=== PATIENT | male | born 1935 | race African-American/Black ===

== ENCOUNTER 2019-02-02 10:24 | Inpatient (IN) | payer MEDICARE, OTHER ==
[~2019-02-02] VITALS: Ht 172.7 cm; Wt 68.0 kg
--- NOTE | 2019-02-02 10:40 | NUR ---
ED Nurse Note: [facility] due to Grand mal seizure yesterday at home, lasted about 2 mins, witnessed by facility staffs. Family refused seizure medication, wanted to " check with neurologist first before medications", pt was taken to [facility] and this morning, pt had an episode of loss of consciousness. No hx of seizure. Dr Valencia requested to send patient to the ER. Pt AOx1, baseline. Vital signs stable at this time. Seizure precautions applied. Will cont to monitor.
--- NOTE | 2019-02-02 11:04 | Emergency Room Report ---
History of Present Illness General Chief Complaint: Seizure Source: EMS Present Illness HPI 83-year-old male history of Alzheimer's, dementia A+O x1 presents with new onset of seizures that occurred 2 days prior to arrival, severity is severe, lasting minutes tonic-clonic in nature, no aggravating or alleviating factors, patient was seen at [facility] where he was subsequently discharged, family refused to start seizure medications, patient was sent here by the senior living for evaluation. Allergies: Coded Allergies: No Known Allergies (Unverified , 02/02/19) Patient History Limited by: medical condition - Dementia Past Medical History: see triage record Reviewed Nursing Documentation: PMH: Agreed; PSxH: Agreed Nursing Documentation-PMH Past Medical History: No History, Except For Review of Systems All Other Systems: limited - Dementia Physical Exam Vital Signs Date Time Temp Pulse Resp B/P (MAP) Pulse Ox O2 Delivery O2 Flow Rate FiO2 02/02/19 10:33 97.9 70 18 127/75 (92) 93 Room Air Sp02 EP Interpretation: reviewed, normal General Appearance: well appearing, no apparent distress, alert Head: normocephalic, atraumatic Eyes: bilateral eye PERRL, bilateral eye EOMI ENT: uvula midline, moist mucus membranes Neck: supple, thyroid normal, supple/symm/no masses Respiratory: lungs clear, no respiratory distress, no retraction, no accessory muscle use Cardiovascular #1: normal peripheral pulses, regular rate, rhythm, no edema, no gallop, no murmur Gastrointestinal: non tender, soft, no guarding, no rebound Musculoskeletal: normal inspection Neurologic: alert, responsive Psychiatric: other - Flat affect Skin: no rash, warm/dry Medical Decision Making Diagnostic Impression: Primary Impression: Seizure disorder ER Course 83-year-old male presents with seizure disorder, patient is unable to give a history, he has dementia, spoke with Dr. Ortiz Neurology consult placed in the computer Laboratory Tests Test 02/02/19 11:00 02/02/19 11:25 White Blood Count 9.9 K/UL (4.8-10.8) Red Blood Count 5.23 M/UL (4.70-6.10) Hemoglobin 11.8 G/DL (14.2-18.0) L Hematocrit 39.9 % (42.0-52.0) L Mean Corpuscular Volume 76 FL (80-99) L Mean Corpuscular Hemoglobin 22.6 PG (27.0-31.0) L Mean Corpuscular Hemoglobin Concent 29.7 G/DL (32.0-36.0) L Red Cell Distribution Width 12.7 % (11.6-14.8) Platelet Count 165 K/UL (150-450) Mean Platelet Volume 9.9 FL (6.5-10.1) Neutrophils (%) (Auto) 80.7 % (45.0-75.0) H Lymphocytes (%) (Auto) 8.5 % (20.0-45.0) L Monocytes (%) (Auto) 9.2 % (1.0-10.0) Eosinophils (%) (Auto) 0.4 % (0.0-3.0) Basophils (%) (Auto) 1.1 % (0.0-2.0) Prothrombin Time 10.1 SEC (9.30-11.50) Prothrombin Time INR 0.9 (0.9-1.1) PTT 27 SEC (23-33) Sodium Level 140 MMOL/L (136-145) Potassium Level 4.2 MMOL/L (3.5-5.1) Chloride Level 106 MMOL/L (98-107) Carbon Dioxide Level 26 MMOL/L (21-32) Anion Gap 8 mmol/L (5-15) Blood Urea Nitrogen 14 mg/dL (7-18) Creatinine 1.0 MG/DL (0.55-1.30) Estimate Glomerular Filtration Rate mL/min (>60) Glucose Level 96 MG/DL (74-106) Lactic Acid Level 1.30 mmol/L (0.4-2.0) Calcium Level 9.0 MG/DL (8.5-10.1) Phosphorus Level 4.1 MG/DL (2.5-4.9) Magnesium Level 2.2 MG/DL (1.8-2.4) Total Bilirubin 0.6 MG/DL (0.2-1.0) Aspartate Amino Transferase (AST) 40 U/L (15-37) H Alanine Aminotransferase (ALT) 23 U/L (12-78) Alkaline Phosphatase 86 U/L (46-116) Total Creatine Kinase 1573 U/L (26-308) H Creatine Kinase MB 2.7 NG/ML (0.0-3.6) Creatine Kinase MB Relative Index 0.1 Troponin I 0.000 ng/mL (0.000-0.056) Pro-B-Type Natriuretic Peptide 171 pg/mL (0-125) H Total Protein 7.1 G/DL (6.4-8.2) Albumin 3.3 G/DL (3.4-5.0) L Globulin 3.8 g/dL Albumin/Globulin Ratio 0.9 (1.0-2.7) L Lipase 133 U/L (73-393) Urine Color Yellow Urine Appearance Clear Urine pH 6 (4.5-8.0) Urine Specific [place] 1.020 (1.005-1.035) Urine Protein 1+ (NEGATIVE) H Urine Glucose (UA) Negative (NEGATIVE) Urine Ketones Negative (NEGATIVE) Urine Blood Negative (NEGATIVE) Urine Nitrite Negative (NEGATIVE) Urine Bilirubin Negative (NEGATIVE) Urine Urobilinogen Normal MG/DL (0.0-1.0) Urine Leukocyte Esterase Negative (NEGATIVE) Urine RBC 0-2 /HPF (0 - 0) H Urine WBC 0-2 /HPF (0 - 0) Urine Squamous Epithelial Cells Occasional /LPF Urine Bacteria Few /HPF (NONE) Urine Mucus Moderate /LPF (NONE/OCC) H EKG Diagnostic Results EKG Time: 11:03 EP Interpretation: NSR, Rate: normal Rhythm: NSR ST Segments: no acute changes Chest X-Ray Diagnostic Results Chest X-Ray Diagnostic Results : Chest X-Ray Ordered: Yes # of Views/Limited/Complete: 1 View Indication: Other - seizure EP Interpretation: Yes Interpretation: no consolidation, no effusion, no pneumothorax, no acute cardiopulmonary disease Impression: No acute disease Electronically Signed by: Stevie Medina MD CT/MRI/US Diagnostic Results CT/MRI/US Diagnostic Results : Impression FINDINGS: No acute hemorrhage or edema. No mass effect or midline shift. There is age-related enlargement of the ventricles and extra axial CSF spaces. There is periventricular deep white matter ischemic change. Normal flynn-white differentiation. Visualized orbits are unremarkable. There is considerable frontal sinus opacification. Mucosal disease of several ethmoid air cells are also demonstrated.. Intact calvarium. IMPRESSION: Chronic and age-related changes. Negative for acute intracranial bleed or mass effect Last Vital Signs Date Time Temp Pulse Resp B/P (MAP) Pulse Ox O2 Delivery O2 Flow Rate FiO2 02/02/19 10:33 97.9 70 18 127/75 (92) 93 Room Air Disposition: ADMITTED INPATIENT Condition: Stable Stevie Medina MD Feb 02, 2019 11:04
[2019-02-02 11:18] LABS: BASOPHILS % (AUTO) 1.1 % (0.0-2.0); EOSINOPHILS % (AUTO) 0.4 % (0.0-3.0); HEMATOCRIT 39.9 % (42.0-52.0); HEMOGLOBIN 11.8 G/DL (14.2-18.0); LYMPHOCYTES % (AUTO) 8.5 % (20.0-45.0); MEAN CORPUSCULAR VOLUME 76 FL (80-99); MONOCYTES % (AUTO) 9.2 % (1.0-10.0); NEUTROPHILS % (AUTO) 80.7 % (45.0-75.0); PLATELET COUNT 165 K/UL (150-450); RED BLOOD COUNT 5.23 M/UL (4.70-6.10); RED CELL DISTRIBUTION WIDTH 12.7 % (11.6-14.8); WHITE BLOOD COUNT 9.9 K/UL (4.8-10.8)
[2019-02-02 11:31] VITALS: BP 136/81
[2019-02-02 11:31] LABS: INR 0.9 (0.9-1.1)
[2019-02-02 11:34] LABS: ANION GAP 8 mmol/L (5-15); BLOOD UREA NITROGEN 14 mg/dL (7-18); CARBON DIOXIDE 26 MMOL/L (21-32); CHLORIDE 106 MMOL/L (98-107); POTASSIUM 4.2 MMOL/L (3.5-5.1); SODIUM 140 MMOL/L (136-145)
[2019-02-02 11:45] LABS: APPEARANCE,URINE CLEAR; BILIRUBIN, URINE NEGATIVE (NEGATIVE); GLUCOSE, URINE (UA) NEGATIVE (NEGATIVE); KETONES,URINE NEGATIVE (NEGATIVE); LEUKOCYTE ESTERASE ,URINE NEGATIVE (NEGATIVE); NITRITE,URINE NEGATIVE (NEGATIVE); PH,URINE 6 (4.5-8.0); PROTEIN,URINE 1+ (NEGATIVE); UROBILINOGEN,URINE NORMAL MG/DL (0.0-1.0)
[2019-02-02 11:57] LABS: COLOR,URINE YELLOW
[2019-02-02 11:57] LABS: ALANINE AMINOTRANSFERASE 23 U/L (12-78); ALBUMIN 3.3 G/DL (3.4-5.0); ALBUMIN/GLOBULIN RATIO 0.9 (1.0-2.7); ALKALINE PHOSPHATASE 86 U/L (46-116); ASPARTATE AMINO TRANSFERASE 40 U/L (15-37); BILIRUBIN,TOTAL 0.6 MG/DL (0.2-1.0); CKMB 2.7 NG/ML (0.0-3.6); CREATINE KINASE 1573 U/L (26-308); PHOSPHORUS 4.1 MG/DL (2.5-4.9)
--- NOTE | 2019-02-02 12:00 | NUR ---
Ciro cornejo in EDM - 02/02/19 at 1230 by FARTUN ED Nurse Note: Dr. Shanks at bedside and discontinued sitter at this time.
--- NOTE | 2019-02-02 12:21 | NUR ---
ED Nurse Note: RN attempted to give report. Nurse, sung not available to take report per Ji.
--- NOTE | 2019-02-02 12:24 | Diagnostic Imaging Report ---
Indication: Altered mental status and seizures Technique: spiral acquisitions obtained through the brain. Angled axial and coronal 5 x 5 mm slices were reconstructed. No IV contrast utilized. Radiation dose was minimized using automated exposure control Total dose length product 1393 mGycm. CTDIvol(s) 70 mGy Comparison: none FINDINGS: No acute hemorrhage or edema. No mass effect or midline shift. There is age-related enlargement of the ventricles and extra axial CSF spaces. There is periventricular deep white matter ischemic change. Normal flynn-white differentiation. Visualized orbits are unremarkable. There is considerable frontal sinus opacification. Mucosal disease of several ethmoid air cells are also demonstrated.. Intact calvarium. IMPRESSION: Chronic and age-related changes. Negative for acute intracranial bleed or mass effect The CT scanner at [facility] is accredited by the [employer] and the scans are performed using protocols designed to limit radiation exposure to as low as reasonably achievable to attain images of sufficient resolution adequate for diagnostic evaluation
[2019-02-02] MEDS ORDERED: RIVASTIGMINE1 EAC1 TD (12:29)
[2019-02-02] MEDS ORDERED: MILK OF MA400 MG/51 ORAL (12:29)
[2019-02-02] MEDS ORDERED: FERROUS SULFAT325 MG ORAL (12:29)
[2019-02-02] MEDS ORDERED: MULTIVITAMINS1 EAC8 ORAL (12:29)
[2019-02-02] MEDS ORDERED: ASPIR 8181 MG ORAL (12:29)
[2019-02-02] MEDS ORDERED: SENNA8.6 M2 PO (12:29)
[2019-02-02] MEDS ORDERED: DULCOLAX10 MG RC (12:29)
[2019-02-02] MEDS ORDERED: METOPROLOL TART25 MG ORAL (12:29)
[2019-02-02] MEDS ORDERED: VITAMIN B-1100 MG ORAL (12:29)
[2019-02-02] MEDS ORDERED: DUONEB 0.5-3(2.53 ML HHN (12:29)
[2019-02-02] MEDS ORDERED: ACETAMINOPHEN325 M1 ORAL (12:29)
[2019-02-02 12:35] VITALS: BP 133/78
--- NOTE | 2019-02-02 12:50 | NUR ---
ED Nurse Note: MARISSA Burton gave report to MARISSA Beauchamp at ext [phone].
--- NOTE | 2019-02-02 12:50 | NUR ---
NURSE NOTES: received report from CHEYENNE hoskins RN. patient will be admitted under Dr. renaldo hitchcock of syncope. seizure
--- NOTE | 2019-02-02 13:00 | Diagnostic Imaging Report ---
Indication: Dyspnea Technique: One view of the chest Comparison: none Findings: Lungs and pleural spaces are clear. Heart size is upper limits normal. Is the aorta is tortuous Impression: No acute process
--- NOTE | 2019-02-02 13:09 | NUR ---
NURSE NOTES: patient admitted to [address]/ under Dr. Valencia dx of seizure and syncope. no episode of seizure since ER admitt. alert. limited verbal communication. no respiratory distress noted. no facial grimacing. IV on LFA 20g. hep lock. a daughter at the bed side. skin assess done. no decubitus noted. seizure precaution. side rails padded. bed in the lowest position. call light within reach. alarm on. will continue to provide plan of care.
[2019-02-02 13:25] VITALS: BP 127/84
--- NOTE | 2019-02-02 15:00 | NUR ---
NURSE NOTES: called Dr. Valencia and received new admission orders. order noted and carried out.
[2019-02-02] MEDS ORDERED: Albuterol/Ipratropium 3ml neb HHN PRN (15:45)
[2019-02-02] MEDS ORDERED: Milk of Magnesia 30ml Ud ORAL PRN (15:45)
--- NOTE | 2019-02-02 15:55 | NUR ---
NURSE NOTES: left message to Dr. Hunt ([phone]) for neuro consult ordered by DR. Valencia.
[2019-02-02 16:00] VITALS: BP 135/63
[2019-02-02] MEDS: D5 1/2NS 1,000 ML IV SCH (16:22)
--- NOTE | 2019-02-02 19:48 | NUR ---
HAND-OFF: Report given to MARISSA Morel.
[2019-02-02 20:08] VITALS: BP 119/79
--- NOTE | 2019-02-02 20:20 | NUR ---
NURSE NOTES: PATIENT IN BED, AWAKE. IV IN PLACE, RUNNING IV FLUIDS. NO S/S DISTRESS OR PAIN NOTED. WHEN NURSE ATTEMPTED TO DO NEURO CHECK, PATIENT STATED "NO" WHEN NURSE ASKED HIS ABOUT HIS NAME, DATE, PLACE, PURPOSE. BED IN LOWEST POSITION, CALL LIGHT WITHIN REACH, BED ALARM ON. WILL CONTINUE TO MONITOR.
[2019-02-02] MEDS: Metoprolol 25mg tab ORAL SCH (20:36)
[2019-02-02] MEDS: Heparin 5000 units/ml inj SUBQ SCH (20:45)
[2019-02-03 00:12] VITALS: BP 129/79
--- NOTE | 2019-02-03 03:12 | History & Physical ---
History of Present Illness General Date patient seen: Feb 02, 2019 Time patient seen: 22:59 Reason for Hospitalization: Seizure new onset Present Illness HPI 83 yo male with hx of psychosis has new onset of tonic/clonicseizure which occurred 2 days ago and was transferred to [facility] for evaluation. He was discharged from ER back to [facility] on antiepileptic medication however his family refused the medication because he was not seen by neurologic. Today he had another seizure. It was decided to take patient to hospital. Awaiting evaluation by neurology. Otherwise patient is stable. No report of trauma to the head. Allergies: Coded Allergies: No Known Allergies (Unverified , 02/02/19) Medication History Scheduled Aspirin* (Aspir 81*), 81 MG ORAL DAILY, (Reported) Ferrous Sulfate* (Ferrous Sulfate*), 325 MG ORAL DAILY, (Reported) Metoprolol Tartrate* (Metoprolol Tartrate*), 25 MG ORAL EVERY 12 HOURS, ( Reported) Multivitamin With Minerals (Multivitamins With Minerals*), 1 TAB ORAL DAILY, ( Reported) Rivastigmine (Rivastigmine), 1 EACH TD DAILY, (Reported) Sennosides (Senna), 17.2 MG PO DAILY, (Reported) Thiamine Hcl* (Vitamin B-1*), 100 MG ORAL DAILY, (Reported) Scheduled PRN Acetaminophen* (Acetaminophen 325MG Tablet*), 650 MG ORAL Q6H PRN for For Pain, (Reported) Bisacodyl (Dulcolax), 10 MG RC NEEDED PRN for Constipation, (Reported) Ipratropium/Albuterol Sulfate (DuoNeb 0.5-3(2.5)mg/3ml), 3 ML HHN EVERY 6 HOURS PRN for Shortness of Breath, (Reported) Magnesium Hydroxide* (Milk Of Magnesia*), 30 ML ORAL DAILY PRN for Constipation, (Reported) Patient History Limited by: medical condition History Provided By: Medical Record Healthcare decision maker lilibeth [place]/daughter Resuscitation status Full Code Advanced Directive on File Review of Systems Review of Symptoms General ROS: no weight loss or fever Psychological ROS: no depression or mood changes, no memory loss Ophthalmic ROS: no visual changes or eye irritation ENT ROS: no nasal congestion, hearing loss, dizziness Allergy and Immunology ROS: no allergic symptoms or urticaria Hematological and Lymphatic ROS: no swollen glands, unusual bleeding or bruising Endocrine ROS: no polyuria, polydipsia, weight changes, temperature intolerance Respiratory ROS: no cough, shortness of breath, or wheezing Cardiovascular ROS: no chest pain or dyspnea on exertion Gastrointestinal ROS: denies abdominal pain, bright red blood in stool. Musculoskeletal ROS: no myalgias or arthralgias Neurological ROS: no TIA or stroke symptoms Dermatological ROS: no new or changing skin lesions, rashes or pruritis Physical Exam Physical Exam General appearance: alert, cooperative, no distress, appears stated age Head: Normocephalic, without obvious abnormality, atraumatic Eyes: conjunctivae/corneas clear. PERRL, EOM's intact. Fundi benign Throat: Lips, mucosa, and tongue normal. Teeth and gums normal Neck: supple, symmetrical, trachea midline, no adenopathy, thyroid: not enlarged, symmetric, no tenderness/mass/nodules, no carotid bruit and no JVD Lungs: clear to auscultation bilaterally Heart: regular rate and rhythm, S1, S2 normal, no murmur, click, rub or gallop Abdomen: soft, non-tender. Bowel sounds normal. No masses, no organomegaly Extremities: extremities normal, atraumatic, no cyanosis or edema Pulses: 2+ and symmetric Skin: Skin color, texture, turgor normal. No rashes or lesions Neurologic: Grossly normal Last 24 Hour Vital Signs Date Time Temp Pulse Resp B/P (MAP) Pulse Ox O2 Delivery O2 Flow Rate FiO2 02/03/19 00:12 97.6 82 18 129/79 (96) 96 02/02/19 21:00 Room Air 02/02/19 20:36 101 119/79 02/02/19 20:08 97.8 101 18 119/79 (92) 96 02/02/19 16:00 98.7 68 18 135/63 (87) 94 02/02/19 13:25 98.2 69 19 127/84 (98) 94 02/02/19 13:23 Room Air 02/02/19 12:50 97.9 87 19 133/78 99 Room Air 02/02/19 12:35 97.9 87 19 133/78 99 Room Air 02/02/19 11:31 97.9 89 20 136/81 97 Room Air 02/02/19 11:31 89 20 Room Air 02/02/19 10:33 97.9 70 18 127/75 (92) 93 Room Air Intake and Output 02/02/19 02/03/19 18:59 06:59 Intake Total 360 ml Output Total 10 ml Balance 350 ml Intake Oral 360 ml Output Urine Total 10 ml # Voids 3 Laboratory Tests Test 02/02/19 11:00 02/02/19 11:25 White Blood Count 9.9 K/UL (4.8-10.8) Red Blood Count 5.23 M/UL (4.70-6.10) Hemoglobin 11.8 G/DL (14.2-18.0) L Hematocrit 39.9 % (42.0-52.0) L Mean Corpuscular Volume 76 FL (80-99) L Mean Corpuscular Hemoglobin 22.6 PG (27.0-31.0) L Mean Corpuscular Hemoglobin Concent 29.7 G/DL (32.0-36.0) L Red Cell Distribution Width 12.7 % (11.6-14.8) Platelet Count 165 K/UL (150-450) Mean Platelet Volume 9.9 FL (6.5-10.1) Neutrophils (%) (Auto) 80.7 % (45.0-75.0) H Lymphocytes (%) (Auto) 8.5 % (20.0-45.0) L Monocytes (%) (Auto) 9.2 % (1.0-10.0) Eosinophils (%) (Auto) 0.4 % (0.0-3.0) Basophils (%) (Auto) 1.1 % (0.0-2.0) Prothrombin Time 10.1 SEC (9.30-11.50) Prothromb Time International Ratio 0.9 (0.9-1.1) Activated Partial Thromboplast Time 27 SEC (23-33) Sodium Level 140 MMOL/L (136-145) Potassium Level 4.2 MMOL/L (3.5-5.1) Chloride Level 106 MMOL/L (98-107) Carbon Dioxide Level 26 MMOL/L (21-32) Anion Gap 8 mmol/L (5-15) Blood Urea Nitrogen 14 mg/dL (7-18) Creatinine 1.0 MG/DL (0.55-1.30) Estimat Glomerular Filtration Rate mL/min (>60) Glucose Level 96 MG/DL (74-106) Lactic Acid Level 1.30 mmol/L (0.4-2.0) Calcium Level 9.0 MG/DL (8.5-10.1) Phosphorus Level 4.1 MG/DL (2.5-4.9) Magnesium Level 2.2 MG/DL (1.8-2.4) Total Bilirubin 0.6 MG/DL (0.2-1.0) Aspartate Amino Transf (AST/SGOT) 40 U/L (15-37) H Alanine Aminotransferase (ALT/SGPT) 23 U/L (12-78) Alkaline Phosphatase 86 U/L (46-116) Total Creatine Kinase 1573 U/L (26-308) H Creatine Kinase MB 2.7 NG/ML (0.0-3.6) Creatine Kinase MB Relative Index 0.1 Troponin I 0.000 ng/mL (0.000-0.056) Pro-B-Type Natriuretic Peptide 171 pg/mL (0-125) H Total Protein 7.1 G/DL (6.4-8.2) Albumin 3.3 G/DL (3.4-5.0) L Globulin 3.8 g/dL Albumin/Globulin Ratio 0.9 (1.0-2.7) L Lipase 133 U/L (73-393) Urine Color Yellow Urine Appearance Clear Urine pH 6 (4.5-8.0) Urine Specific [place] 1.020 (1.005-1.035) Urine Protein 1+ (NEGATIVE) H Urine Glucose (UA) Negative (NEGATIVE) Urine Ketones Negative (NEGATIVE) Urine Blood Negative (NEGATIVE) Urine Nitrite Negative (NEGATIVE) Urine Bilirubin Negative (NEGATIVE) Urine Urobilinogen Normal MG/DL (0.0-1.0) Urine Leukocyte Esterase Negative (NEGATIVE) Urine RBC 0-2 /HPF (0 - 0) H Urine WBC 0-2 /HPF (0 - 0) Urine Squamous Epithelial Cells Occasional /LPF Urine Bacteria Few /HPF (NONE) Urine Mucus Moderate /LPF (NONE/OCC) H Microbiology Date/Time Source Procedure Growth Status 02/02/19 12:40 Rectum Received Height (Feet): 5 Height (Inches): 8.00 Weight (Pounds): 150 Medications Current Medications Medications (Trade) Dose Ordered Sig/Rajinder Route PRN Reason Start Time Stop Time Status Last Admin Dose Admin Acetaminophen (Tylenol) 650 mg Q6H PRN ORAL Mild Pain/Temp > 100.5 02/02/19 15:45 03/04/19 15:44 Albuterol/ Ipratropium (Albuterol/ Ipratropium) 3 ml Q6H PRN HHN Shortness of Breath 02/02/19 15:45 02/07/19 15:44 Aspirin (ASA) 81 mg DAILY ORAL 02/03/19 09:00 03/05/19 08:59 Bisacodyl (Dulcolax) 10 mg DAILYPRN PRN RECTAL Constipation 02/02/19 15:45 03/04/19 15:44 Dextrose/Sodium Chloride 1,000 ml @ 40 mls/hr Q24H IV 02/02/19 16:00 03/04/19 15:59 02/02/19 16:22 Ferrous Sulfate (Feosol) 325 mg DAILY ORAL 02/03/19 09:00 03/05/19 08:59 Heparin Sodium (Porcine) (Heparin 5000 units/ml) 5,000 units EVERY 12 HOURS SUBQ 02/02/19 21:00 03/04/19 20:59 02/02/19 20:45 Magnesium Hydroxide (Mom) 30 ml DAILYPRN PRN ORAL Constipation 02/02/19 15:45 03/04/19 15:44 Metoprolol Tartrate (Lopressor) 25 mg Q12HR ORAL 02/02/19 21:00 03/04/19 20:59 02/02/19 20:36 Multivitamins Therapeutic (Therapeutic Multivitamin) 1 ea DAILY ORAL 02/03/19 09:00 03/05/19 08:59 Rivastigmine Tartrate (Exelon) 9.5 mg DAILY TDERMAL 02/03/19 09:00 03/05/19 08:59 Sennosides (Senokot) 17.2 mg DAILY ORAL 02/03/19 09:00 03/05/19 08:59 Thiamine HCl (Vitamin B1) 100 mg DAILY ORAL 02/03/19 09:00 03/05/19 08:59 Assessment/Plan Status: stable Status Narrative New onset of seizure, etiology unknown. Awaiting recommendation by neurology Diagnosis [place] I: Generalized tonic/clonic seizure Psychosis MIPS Hospital declaration INPATIENT level of care is warranted for this patient because patient is a 89 year old with who presents with suspicion of . I have a high level of concern because . Patient is at high risk for . Plan of care/treatment include . Patient care is expected to be greater than 2 midnights. OBSERVATION level of care is warranted for this patient. Patient is a 89 year old with who presents with . Patient will be admitted for 1 midnight, but if additional night(s) is/are necessary, patient will be converted to inpatient status for the entire hospitalization Disposition: Once the patient is stable to leave the hospital, I anticipate the patient will likely be discharged to the following environment: Estimated discharge date: I spent 70 minutes on this patient's case, and minutes was dedicated to counseling and/or care coordination. MIPS (Merit-based Incentive Payment System) Applicable CPT: 48771, 32100 CHECK ALL THAT ARE MET: Measure #5 (CHF): All ages. Prescribe PATRICE/ARB upon discharge for patients with left ventricular systolic dysfunction. If not, the reason is clearly documented in the medical chart. Measure #8 (CHF): All ages. Prescribe a beta ronaldo upon discharge for patients with left ventricular systolic dysfunction. If not, the reason is clearly documented in the medical chart. Measure #47 Advance care plan or surrogate decision maker documented in the medical record. Measure #130 The provider has documented, updated, or reviewed the patients current medication list and has documented it in the patients note. Measure #374 (All): Send report to referring provider. Measure #407(Sepsis due to MSSA bacteremia): Age 18+ Patient treated with a beta-lactam antibiotic (Nafcillin, Oxacillin or Cefazolin) as definitive therapy. MEDICAL COMPLEXITY High complexity medical decision making (need 2/3 categories) Problem - need 4 points Acute/new problem with new plan for workup (4 points, 1 max) Acute/new problem without additional workup (3 points, 1 max) Unstable chronic problem actively being managed (2 point each, 2 max) Stable chronic problem actively being managed (1 point each, 2 max) Self-limited/transient process (constipation, muscle ache, etc) (1 point each , 2 max) Data - need 4 points Reviewed labs/imaging studies (1 points, 2 max) Independent review of imaging (EKG, xrays, etc) (2 points, 2 max) Discussed case with consult/other MD/RN (2 points, 2 max) High Risk - qualify if have one of the following: Severe exacerbation of acute problem, acute mental status change, IV narcotics , monitoring drug levels (vancomycin, INR, tacrolimus etc) Luis Valencia MD Feb 03, 2019 03:12
[2019-02-03 04:53] VITALS: BP 136/69
--- NOTE | 2019-02-03 06:20 | NUR ---
NURSE NOTES: Patient asleep, no distress.
[2019-02-03 06:32] LABS: BASOPHILS % (AUTO) 2.1 % (0.0-2.0); EOSINOPHILS % (AUTO) 0.9 % (0.0-3.0); HEMATOCRIT 39.7 % (42.0-52.0); HEMOGLOBIN 11.9 G/DL (14.2-18.0); LYMPHOCYTES % (AUTO) 17.5 % (20.0-45.0); MEAN CORPUSCULAR VOLUME 76 FL (80-99); MONOCYTES % (AUTO) 10.6 % (1.0-10.0); PLATELET COUNT 172 K/UL (150-450); RED BLOOD COUNT 5.19 M/UL (4.70-6.10); RED CELL DISTRIBUTION WIDTH 12.8 % (11.6-14.8); WHITE BLOOD COUNT 8.1 K/UL (4.8-10.8)
[2019-02-03 07:00] LABS: ANION GAP 5 mmol/L (5-15); BLOOD UREA NITROGEN 16 mg/dL (7-18); CALCIUM 9.3 MG/DL (8.5-10.1); CARBON DIOXIDE 29 MMOL/L (21-32); CHLORIDE 103 MMOL/L (98-107); CREATININE 1.1 MG/DL (0.55-1.30); POTASSIUM 3.8 MMOL/L (3.5-5.1); SODIUM 137 MMOL/L (136-145)
--- NOTE | 2019-02-03 07:18 | NUR ---
NURSE NOTES: received report from MARISSA Morel. patient in bed. sleeping. no respiratory distress noted on room air. no facial grimacing noted. IV on LFA 20g intact. running d51/2@40/hr. no episode of seizure or syncope during night. bed in the lowest position. call light within reach. alarm on. will continue to provide plan of care.
--- NOTE | 2019-02-03 07:19 | NUR ---
HAND-OFF: Report given to KOMAL PROCTOR RN.
[2019-02-03 08:00] VITALS: BP 129/82
[2019-02-03] MEDS: Metoprolol 25mg tab ORAL SCH ×2 (08:21→20:36)
[2019-02-03] MEDS: Thiamine 100mg tab ORAL SCH (08:21)
[2019-02-03] MEDS: Multivitamin w/Minerals tab ORAL SCH (08:21)
[2019-02-03] MEDS: Sennosides 8.6mg tab ORAL SCH (08:21)
[2019-02-03] MEDS: Aspirin Baby 81mg ORAL SCH (08:22)
[2019-02-03] MEDS: Heparin 5000 units/ml inj SUBQ SCH ×2 (08:23→20:39)
[2019-02-03] MEDS: EXELON TDERMAL SCH (10:22)
--- NOTE | 2019-02-03 10:50 | NUR ---
NURSE NOTES: left message to Dr. Hunt for neuro consult. waiting for call back.
[2019-02-03 12:00] VITALS: BP 130/86
--- NOTE | 2019-02-03 12:59 | NUR ---
NURSE NOTES: received call from Erik Villalta regarding neuro consult with Dr. Hunt. notified dr. webber RNs have not received call back from Dr. Hunt yet. Dr. webber wants to call him when neuro doctor would see the patient or if not still want to hear update. will carry out.
--- NOTE | 2019-02-03 15:49 | NUR ---
NURSE NOTES: have not received return call from Dr. Hunt and his PA Cesar does not work for [facility] anymore. notified Dr. Valencia and waiting call back.
--- NOTE | 2019-02-03 15:50 | NUR ---
INVOICING SPECIALISTVICE PRESIDENT OF COMMUNICATIONS 83 YO MALE BIBA FROM [facility] TO ER CC PT HAD A GRAND MALL SEIZURE YESTERDAY AND SENT TO [facility]: SEIZURE SYNCOPE T. 97.9 HR 70 RR 18 B/P 127/75 AST 40 TCK [address] NO ACUTE PROCESS CXR= NO ACUTE PROCESS IS: ADMITTED TO MED/SURG@ 1250 MED/SURG STATUS IS: IVF D5NS @ 40ML/HR ASA MVI HEPARIN SUBC MED/SURG STATUS DCP RETURN TO [facility]
[2019-02-03] MEDS: D5 1/2NS 1,000 ML IV SCH (15:57)
[2019-02-03 16:00] VITALS: BP 127/74
--- NOTE | 2019-02-03 16:19 | NUR ---
NURSE NOTES: received call from lawanda Villalta. wanted to talk to charge nurse/lCara for further order.
--- NOTE | 2019-02-03 18:33 | NUR ---
NURSE NOTES: Dr. webber awares no neuro consult available at this time. Charge nurse tried contact to DR. Fabian and Dr. Hunt but could not reach both.
--- NOTE | 2019-02-03 19:30 | NUR ---
NURSE NOTES: RECEIVED PATIENT LYING IN BED, AWAKE, ORIENTED TO PERSON, ABLE TO STATE NAME, REALITY ORIENTATION PROVIDED DURING ASSESSMENT. ALL NEEDS ANTICIPATED AND MET BY NURSING STAFF DUE TO COGNITIVE STATUS. NO SIGNS AND SYMPTOMS OF ACUTE CARDIO RESPIRATORY DISTRESS/SHORTNESS OF BREATH, NO PERIPHERAL EDEMA NOTED. FALL/SEIZURE PRECAUTIONS IMPLEMENTED, SIDE RAILS PADDED, NO REPORT OF SEIZURE ACTIVITY. ABDOMEN SOFT/NON DISTENDED/NON TENDER/AUDIBLE BOWEL SOUNDS. SIDE RAILS UP X3/BED IN LOWEST POSITION FOR SAFETY. CALL LIGHT WITHIN REACH. FREQUENT ROUNDING FOR SAFETY/NEEDS. NAD.
--- NOTE | 2019-02-03 19:40 | NUR ---
HAND-OFF: Report given to YOHAN De La Torre.
[2019-02-03 20:00] VITALS: BP 141/69
[2019-02-04] VITALS: BP 99/52
[2019-02-04 04:00] VITALS: BP 124/67
--- NOTE | 2019-02-04 04:01 | General Progress Note ---
Assessment/Plan Problem List: (1) Seizure disorder ICD Codes: G40.909 - Epilepsy, unspecified, not intractable, without status epilepticus SNOMED: 461942484 (2) Syncope ICD Codes: R55 - Syncope and collapse SNOMED: 632671816 Status: doing well, stable Status Narrative Awaiting evaluation by neurology Assessment/Plan: Seizure not recurred. Once evaluated will discharge him. Subjective Date patient seen: Feb 04, 2019 Time patient seen: 23:49 ROS Limited/Unobtainable: Yes Constitutional: Reports: no symptoms HEENT: Reports: no symptoms Cardiovascular: Reports: no symptoms Respiratory: Reports: no symptoms Gastrointestinal/Abdominal: Reports: no symptoms Genitourinary: Reports: no symptoms Neurologic/Psychiatric: Reports: pre-existing deficit Endocrine: Reports: no symptoms Hematologic/Lymphatic: Reports: no symptoms Allergies: Coded Allergies: No Known Allergies (Unverified , 02/02/19) Objective Last 24 Hour Vital Signs Date Time Temp Pulse Resp B/P (MAP) Pulse Ox O2 Delivery O2 Flow Rate FiO2 02/03/19 20:46 Room Air 02/03/19 20:36 92 141/69 02/03/19 20:00 97.9 92 20 141/69 (93) 95 02/03/19 19:21 69 18 97 Room Air 21 02/03/19 16:00 97.9 69 18 127/74 (91) 97 02/03/19 12:00 97.9 56 19 130/86 (101) 99 02/03/19 09:00 Room Air 02/03/19 08:21 63 129/82 02/03/19 08:00 97.5 63 19 129/82 (98) 99 02/03/19 07:56 65 16 96 Room Air 21 02/03/19 04:53 98.0 85 18 136/69 (91) 96 Intake and Output 02/03/19 02/04/19 18:59 06:59 Intake Total 960 ml 320 ml Balance 960 ml 320 ml Intake Oral 480 ml 120 ml IV Total 480 ml 200 ml # Voids 1 Laboratory Tests 02/03/19 05:27: White Blood Count 8.1, Red Blood Count 5.19, Hemoglobin 11.9L, Hematocrit 39.7L , Mean Corpuscular Volume 76L, Mean Corpuscular Hemoglobin 22.8L, Mean Corpuscular Hemoglobin Concent 29.9L, Red Cell Distribution Width 12.8, Platelet Count 172, Mean Platelet Volume 10.4H, Neutrophils (%) (Auto) 69.0, Lymphocytes (%) (Auto) 17.5L, Monocytes (%) (Auto) 10.6H, Eosinophils (%) (Auto ) 0.9, Basophils (%) (Auto) 2.1H, Sodium Level 137, Potassium Level 3.8, Chloride Level 103, Carbon Dioxide Level 29, Anion Gap 5, Blood Urea Nitrogen 16 , Creatinine 1.1, Estimat Glomerular Filtration Rate , Glucose Level 91, Calcium Level 9.3 Height (Feet): 5 Height (Inches): 8.00 Weight (Pounds): 150 General Appearance: no apparent distress EENT: PERRL/EOMI Neck: non-tender, supple Cardiovascular: normal peripheral pulses, normal rate Respiratory/Chest: chest wall non-tender Abdomen: normal bowel sounds, non tender Pelvis: normal external exam Genitourinary/Rectal: normal genital exam Extremities: normal range of motion Edema: no edema noted Arm (L), no edema noted Arm (R), no edema noted Leg (L), no edema noted Leg (R), no edema noted Pedal (L), no edema noted Pedal (R), no edema noted Generalized Edema: non-pitting Neurologic: check totaler II-XII grossly normal Skin: normal pigmentation Lymphatic: normal anterior cervical (L), normal anterior cervical (R), normal posterior cervical (L), normal posterior cervical (R), normal submandibular (L) , normal submandibular (R), normal supraclavicular (L), normal supraclavicular ( R), normal axillary (L), normal axillary (R), normal inguinal (L), normal inguinal (R), normal other Luis Valencia MD Feb 04, 2019 04:01
--- NOTE | 2019-02-04 06:19 | NUR ---
NURSE NOTES: RESTED WELL, NO SIGNIFICANT CHANGE OF CONDITION NOTED THROUGHOUT THE NIGHT. SAFETY MAINTAINED. NAD.
--- NOTE | 2019-02-04 07:00 | NUR ---
Spoke with Dr Bartlett, will see patient today.
--- NOTE | 2019-02-04 07:35 | NUR ---
NURSE NOTES: RECEIVED PATIENT LYING IN BED, A/A/OX1. PATIENT IS FLAT AFFECT. ALL NEEDS ANTICIPATED AND MET BY NURSING STAFF DUE TO COGNITIVE STATUS. NO SIGNS AND SYMPTOMS OF ACUTE CARDIO RESPIRATORY DISTRESS/SHORTNESS OF BREATH, NO PERIPHERAL EDEMA NOTED. FALL/SEIZURE PRECAUTIONS IMPLEMENTED, SIDE RAILS PADDED. KEPT HOB ON SEMI PABLO'S POSITION. ABDOMEN SOFT/NON DISTENDED/NON TENDER/AUDIBLE BOWEL SOUNDS. SIDE RAILS UP X3/BED IN LOWEST POSITION FOR SAFETY. CALL LIGHT WITHIN REACH. WILL CONT TO MONITOR.
[2019-02-04 08:00] VITALS: BP 149/57
--- NOTE | 2019-02-04 08:00 | NUR ---
NURSE NOTES: PATIENT IN BED, AWAKE. IVF IS INFUSING WELL. PATENT AND INTACT. NO S/S DISTRESS OR DISCOMFORT NOTED. APPEARED TO BE FLAT AFFECT. . BED IN LOWEST POSITION, CALL LIGHT WITHIN REACH, BED ALARM ON. WILL CONTINUE TO MONITOR.
[2019-02-04] MEDS: Metoprolol 25mg tab ORAL SCH (09:00)
[2019-02-04] MEDS: Sennosides 8.6mg tab ORAL SCH (09:00)
[2019-02-04] MEDS: Thiamine 100mg tab ORAL SCH (09:00)
[2019-02-04] MEDS: Multivitamin w/Minerals tab ORAL SCH (09:00)
[2019-02-04] MEDS: Aspirin Baby 81mg ORAL SCH (09:01)
[2019-02-04] MEDS: EXELON TDERMAL SCH (09:01)
[2019-02-04] MEDS: Heparin 5000 units/ml inj SUBQ SCH (09:03)
[2019-02-04 12:00] VITALS: BP 107/57
--- NOTE | 2019-02-04 14:35 | Cardiology Report ---
APPROVED REPORT EKG Measurement Heart [id number] MD [id number] Sinus rhythm with premature atrial complexes Otherwise normal ECG
--- NOTE | 2019-02-04 15:45 | NUR ---
NURSE NOTES: REPORT GIVEN TO [facility]. AMBULANCE CALLED FOR ETA. DAUGHTERDEVON MADE AWARE OF THE DISCHARGE. NO PERSONAL BELONGINGS NOTED. WILL CONT TO MONITOR.
[2019-02-04 16:00] VITALS: BP_SYST 140; BP_SYST 94; BP_DIAS 57; BP_DIAS 66
[2019-02-04] MEDS: D5 1/2NS 1,000 ML IV SCH (16:00)
--- NOTE | 2019-02-04 17:47 | NUR ---
NURSE NOTES: patient d/c via ambulance with stable condition. patient became alert and interactive after the EEG today. patient was able to feed himself with minimal assistance. VSS. no pain/discomfort noted. no apparent distress noted. patient had excellent appetite. no seizure activity occurred throughout the shift.
--- NOTE | 2019-02-04 23:45 | Consultation ---
DATE OF CONSULTATION: 02/04/2019 "NOTE: POOR AUDIO QUALITY" NEUROLOGICAL CONSULTATION CONSULTING PHYSICIAN: David Bartlett M.D. CHIEF COMPLAINT: This is the first [facility] admission for this 83-year-old right-handed man, who has had an Alzheimer disease for almost 5 years, starting around 2014 with memory loss. He also had a myocardial infarction 2 years ago with associated pneumonia. I was asked to see him in order to use anticonvulsants for a couple of seizures that he had. The patient is from [place] and migrated about six weeks ago, began to live with his daughter here in [place]. The patient is known to have memory loss in 2014, which has been progressive to the point where in July or August, he has had essentially no language. The patient was in a halfway. The patient 2 days ago had a generalized tonic-clonic seizure, was sent to [facility] for an evaluation. He was discharged from the emergency room back to [facility]. He was given a prescription for Keppra. His daughter refused him to take the medication. The next day, he had another seizure and was admitted to this hospital on 02/02/2019. The patient has had at least 2 head injuries once in May and he did apparently had loss of consciousness once in September where his "head got stuck." The patient is on rivastigmine, aspirin 81 mg, ferrous sulfate 325 mg, and metoprolol. The patient also has a history of "psychosis." The patient used to be a heavy drinker in the 70s and 80s. In mid 90s, he used to be a [id number] smoker. The patient denies history of liver disease, thyroid disease, or cancer. He does have hypertension. He has also been anemic. He is on ferrous sulfate. The patient is admitted here and on admission had a noncontrast CT scan, which revealed atrophy. PAST MEDICAL HISTORY/PAST MEDICAL ILLNESSES: See above. SURGERIES: None ALLERGIES: No known allergies. MEDICATIONS: See above. FAMILY HISTORY: Denies. SOCIAL HISTORY: The patient is single. Lives with daughter. PHYSICAL EXAMINATION: GENERAL: He is a well-developed, male, in no acute distress. LABORATORY AND DIAGNOSTIC DATA: The chemistries were normal on admission except for an AST of 40. His total creatinine and creatine kinase is 15 and 73. Total CPK is 1523. His BNP is 171. Albumin is 3.3. CK-MB fraction is 2.7. Calcium, phosphorus, and magnesium were normal. Total bilirubin is normal. Glucose was 96. Lactic acid was 1.3. The CBC eventually revealed a hemoglobin of 11.8 with low indices, white count 9900, and platelet count of 165,000. Urinalysis was normal except for +1 urine protein. The patient had CT scan revealed sinus opacification. The patient has been on aspirin, ferrous sulfate, heparin 5000 units subcu, metoprolol 200 mg q.12 hours, multivitamin, rivastigmine, Senokot, and thiamine 100 mg daily. PLAN: . David Bartlett MD DR: KAVITHA JOB#: [id number] CC:
--- NOTE | 2019-02-05 03:00 | Consultation ---
DATE OF CONSULTATION: 02/04/2019 NOTE: "VERY POOR AUDIO QUALITY/INCOMPREHENSIBLE" ADDENDUM PHYSICAL EXAMINATION: GENERAL: A well-developed and well-nourished male, lying in bed without any spontaneous movements. The patient has no spontaneous speech. VITAL SIGNS: His heart rate is 70, temperature is 96.6 axillary, blood pressure 141/57. HEENT: He has temporalis muscle wasting on head examination especially the mouth and throat could not be seen. NECK: Rigid in all directions. Carotids were +2. No bruits were appreciated. LUNGS: Appeared to be clear to auscultation. CARDIOVASCULAR SYSTEM: visualized. The patient has normal S1. S2 is physiologically split. No S3, S4, murmurs, or rubs were appreciated. ABDOMEN: The abdomen is slightly obese. Bowel sounds intact. There appeared to be no tenderness, masses, or organomegaly. BACK: Could not be tested. EXTREMITIES: There is evidence of degenerative joint disease. NEUROLOGIC: MENTAL STATUS: The patient was not able to would not follow either midline commands such as . CRANIAL NERVE II: Visual burns are intact . CRANIAL NERVES III, IV, AND : The eyes are in the midline. pupils are any pupillary reaction. Did have a lot of blepharospasm . CRANIAL NERVE V: Corneal sensation appears to be intact. CRANIAL NERVE VII: Facial symmetry appeared to be intact. CRANIAL NERVE VIII: Could not be tested. CRANIAL NERVES IX AND X: He bit down on the tongue depressor. CRANIAL NERVES XI AND XII: Could not be tested. MUSCLE EXAMINATION: Muscle tone is increased in all four extremities. Strength is in all four extremities . REFLEXES: Trace to +1 in the upper extremities, zero at the knees and ankles with downgoing toes and Babinski response. COORDINATION: Could not be tested. GAIT AND STATION: Could not be tested. SENSORY EXAMINATION: deep pain normal in the lower extremities and normal in the right upper extremity. IMPRESSION: encephalopathy, most likely related to in fact 20% of the patients may not treatable, rivastigmine probably has not made much difference as well he was placed on Keppra 500 mg twice a day meningitis treated in the past. PLAN: 1. obtain EEG. 2. Keppra 500 mg p.o. b.i.d. David Bartlett MD DR: Liam JOB#: [id number] CC:
--- NOTE | 2019-02-05 17:45 | Electroencephalogram ---
DATE OF PROCEDURE: 02/04/2019 REQUESTING PHYSICIAN: Luis Valencia M.D. READING PHYSICIAN: Félix Fabian M.D. PROCEDURE PERFORMED: Electroencephalogram. HISTORY: This EEG was performed on an 83-year-old gentleman with a history of psychosis and a seizure disorder. The patient apparently had a seizure and was brought into the hospital for that. The purpose of this EEG was to evaluate the patient for the degree and type of cerebral dysfunction and to exclude ongoing ictal or interictal phenomena. TECHNICAL NOTE: This EEG was performed on a [employer] with electrodes placed on the scalp according to the International 10-20 system. [place]-me-tyfai and ndpzz-qj-ybq montages were used. The EEG was technically satisfactory and was performed in the awake, drowsy, and sleep states. OBSERVATIONS: In the best awake state, the background activity consisted of 8-9 Hz alpha activity with some intermixed theta frequencies. Drowsiness was characterized by dissolution of the alpha rhythm and the appearance of slow frequencies in the 5-6 Hz theta range. Stage II sleep was characterized by further slowing of the background in the delta and theta range, the presence of vertex waves, and 12 Hz sleep spindles. No focal abnormalities or epileptiform discharges were seen. IMPRESSION: This is an abnormal EEG characterized by an unusually large amount of theta activity seen in the reportedly awake state. COMMENT: This study is consistent with an encephalopathy of a mild degree. Please note that no interictal discharges were seen during this EEG. However, the absence of interictal discharges does not rule out a seizure disorder. Félix Fabian M.D., M.S.P.H. DR: CANDY JOB#: [id number] [facility]PITALChristine
--- NOTE | 2019-02-06 11:44 | Discharge Summary ---
Discharge Summary Discharge Summary _ DATE OF ADMISSION: 2018 DATE OF DISCHARGE: 02/04/2019 DISCHARGED BY: Dr. Valencia REASON FOR ADMISSION: 83 years old male, with past medical history of Alzheimer's dementia, psychosis , presented with new onset of seizure activity, occurred 2 days prior to arrival to ED. Seizure look like tonic-clonic in nature, lasting few minutes. nik was seen and evaluated at [facility], from where he was subsequently discharged. Family refused to start anti-seizure medication. Patient subsequently was sent by the intermediate for further evaluation Upon evaluation vital signs were stable. Laboratory work-up revealed no leukocytosis, hemoglobin 11.8, hematocrit 39.9. Stable electrolytes. Stable renal parameters. Lactic acid 1.3. Glucose 196. AST borderline elevated 40, ALT 23. Stable bilirubin and lipase. Albumin 3.3. Urinalysis revealed +1 protein, no evidence of urinary tract infection. EKG revealed normal sinus rhythm, no acute ischemic changes. Troponin was negative. Pro BNP 171. Chest x-ray revealed no acute cardiopulmonary pathology. CT of the head demonstrated chronic and age-related changes, but was negative for acute intracranial bleeding or mass-effect. Patient subsequently admitted with new onset of seizure disorder CONSULTANTS: neurologist Dr. Bartlett [facility] COURSE: Patient admitted to medical surgical floor. Neurology consult was requested. Neurologist recommended to start on Keppra if family agree. EEG revealed unusually large amount of theta activity, seen in the reportedly awake state. The study was consistent with encephalopathy of mild degree. No interictal discharges were seen during the EEG. However the absence of interictal discharges ,does not rule out a seizure disorder Seizure precaution maintained. No further recurrence of seizure activity. Blood pressure was managed with beta-ronaldo and remained stable. Antiplatelet therapy with aspirin continued. Hemoglobin and hematocrit were closely monitored, remained stable. Oral iron supplement continued. Bowel regimen instituted. DVT prophylaxis provided. Exelon continued. Patient clinically stabilized and was ready for discharge to halfway facility for continuation of care. FINAL DIAGNOSES: New onset of seizure disorder Encephalopathy Syncopal episode DISCHARGE MEDICATIONS: See Medication Reconciliation list. DISCHARGE INSTRUCTIONS: Patient was discharged to the halfway facility. Follow up with medical doctor at the facility. I have been assigned to dictate discharge summary for this account. I was not involved in the patient's management. Patricia Mullins NP Feb 06, 2019 11:44
== END 2019-02-04 17:39 | DRG 101 ==
LOC: EDBD 10:24 → EDBEDREQ 10:46 → EMR 11:06 → 4E 11:28 → EDBEDREQ 12:17
DX: G40.909 Epilepsy, unspecified, not intractable, without status epilepticus (principal); G93.40 Encephalopathy, unspecified; R55 Syncope and collapse; G30.9 Alzheimer's disease, unspecified; F02.80 Dementia in other diseases classified elsewhere, unspecified severity, without behavioral disturbance, psychotic disturbance, mood disturbance, and anxiety; I25.2 Old myocardial infarction; I10 Essential (primary) hypertension; Z91.81 History of falling
CPT/HCPCS: 36415; 70450; 71045; 80048; 80053; 81003; 82550; 82553; 82962; 83605; 83690; 83735; 83880; 84100; 84484; 85025; 85610; 85730; 86850; 86900; 86901; 87040; 87081; 93005; 94664; 95819; 99285